=== PATIENT | male | born 2000 | race Caucasian/White ===

== ENCOUNTER 2023-09-16 13:14 | Emergency (ER) | payer OTHER ==
[2023-09-16 13:41] VITALS: BP 135/65; PULSE 65; RESP 20; TEMP 98.1; BMI 27.8
== END 2023-09-16 14:42 | disposition home or self-care (01) ==
LOC: FER 13:14
DX: M25.522 Pain in left elbow (principal); W50.0XXA Accidental hit or strike by another person, initial encounter; Y93.64 Activity, baseball
CPT/HCPCS: 73070-TC-LT-FY; 99283-25